=== PATIENT | female | born 1975 | race Caucasian/White ===

== ENCOUNTER 2017-02-20 06:05 | Day surgery (SDC) | payer BC ==
[~2017-02-20 06:05] MED LIST: INDOCYANINE GREEN 25 MG VIAL IV ONE; cefOXitin SODIUM 2 GM in D5W 100 ML IV ONE
[2017-02-20] MEDS ORDERED: LIDOCAINE 1% 2 ML INJ ID PRN (06:49)
[2017-02-20] MEDS ORDERED: LR 1,000 ML IV ONE (06:49)
[2017-02-20] MEDS ORDERED: ALBUTEROL 3 ML DEYVIAL IH PRN (06:50)
[2017-02-20] MEDS ORDERED: HYDROCODONE/APAP 5/325 TAB PO PRN (06:50)
[2017-02-20] MEDS ORDERED: ONDANSETRON 4 MG/2 ML VIAL IVP PRN (06:50)
[2017-02-20] MEDS ORDERED: PROMETHAZINE HCL 25 MG/ML INJ IVP PRN (06:50)
[2017-02-20] MEDS ORDERED: MIDAZOLAM 2 MG/2 ML VIAL IVP ONE (06:50)
[2017-02-20] MEDS ORDERED: fentaNYL 100 MCG/2 ML INJ IVP PRN (06:50)
[2017-02-20] MEDS ORDERED: HYDROmorphONE/DILAUDID 1 MG/ML INJ IVP PRN (06:50)
[2017-02-20] MEDS ORDERED: ACETAMINOPHEN 500 MG TAB PO PRN (06:50)
[2017-02-20] MEDS ORDERED: NALOXONE HCL 0.4 MG/ML INJ IVP PRN (06:50)
--- NOTE | 2017-02-20 06:52 | PDANEPAE ---
ANE History of Present Illness Magaly RM Past Medical History - Cardiovascular History Hx Hypertension: No Hx Arrhythmias: No Hx Chest Pain: No Hx Coronary Artery / Peripheral Vascular Disease: No Hx CHF / Valvular Disease: No Hx Palpitations: No - Pulmonary History Hx COPD: No Hx Asthma/Reactive Airway Disease: No Hx Recent Upper Respiratory Infection: No Hx Oxygen in Use at Home: No Hx Sleep Apnea: No Sleep Apnea Screening Result - Last Documented: Negative - Neurologic History Hx Cerebrovascular Accident: No Hx Seizures: No Hx Dementia: No - Endocrine History Hx Diabetes: No - Renal History Hx Renal Disorders: No - Liver History Hx Hepatic Disorders: Yes Hepatic History Comment: GALLBLADDER SXS - Neurological & Psychiatric Hx Hx Neurological and Psychiatric Disorders: Yes Neurological / Psychiatric History Comment: ANXIETY - Cancer History Hx Cancer: No - Congenital Disorder History Hx Congenital Disorders: No - GI History Hx Gastrointestinal Disorders: Yes Gastrointestinal History Comment: ACID REFLUX. HYPERPYLORIA - Other Health History Other Health History: NEG - Chronic Pain History Chronic Pain: No - Surgical History Prior Surgeries: TUBAL LIGATION ANE Review of Systems Review of Systems: - Exercise capacity METS (RN): 5 METS ANE Patient History - Allergies Allergies/Adverse Reactions: morphine Allergy (Verified 02/08/17 12:31) "MADE ME REALLY SICK" - Home Medications Home Medications: Alprazolam 02/08/17 [Last Taken Unknown] Tylenol 02/08/17 [Last Taken Unknown] - Smoking Hx Smoking Status: Never smoked - Family Anes Hx Family Hx Anesthesia Complications: NEG ANE Labs/Vital Signs - Vital Signs Height: 160.02 cm Weight: 63.503 kg ANE Physical Exam - Airway Neck exam: FROM Mallampati Score: Class 2 Mouth exam: normal dental/mouth exam - Pulmonary Pulmonary: clear to auscultation - Cardiovascular Cardiovascular: regular rate and rhythym - ASA Status ASA Status: I ANE Anesthesia Plan Anesthesia Plan: general endotracheal anesthesia
[2017-02-20] MEDS ORDERED: PROPOFOL 200 MG/20 ML VIAL ONE (06:55)
[2017-02-20] MEDS ORDERED: ROCURONIUM 50 MG/5 ML VIAL ONE (06:57)
[2017-02-20] MEDS ORDERED: fentaNYL 250 MCG/5 ML INJ ONE (06:58)
[2017-02-20] MEDS ORDERED: DEXAMETHASONE 4 MG/ML VIAL ONE ×2 (07:04)
[2017-02-20] MEDS ORDERED: ONDANSETRON 4 MG/2 ML VIAL ONE ×2 (07:04→10:50)
[2017-02-20] MEDS ORDERED: METOCLOPRAMIDE 10 MG/2 ML VIAL ONE (07:04)
[2017-02-20] MEDS ORDERED: RANITIDINE 50 MG/2 ML VIAL ONE (07:04)
[2017-02-20] MEDS ORDERED: LIDOCAINE 1% 2 ML INJ ONE (07:07)
[2017-02-20] MEDS ORDERED: BUPIVACAINE 0.5% 30 ML SDV ONE (07:09)
[2017-02-20] MEDS ORDERED: INDOCYANINE GREEN 25 MG VIAL IV ONE (07:15)
--- NOTE | 2017-02-20 07:24 | PDHPUP ---
History & Physical Update H&P update statement: This history and physical update is based on an assessment of the patient which was completed after admission or registration (within 24 hours), but prior to the surgery/procedure. H&P update: H&P reviewed & patient examined, no change in patient's condition since H&P completed
[2017-02-20] MEDS ORDERED: SUGAMMADEX SODIUM 200 MG/2 ML VIAL IVP ONE (08:34)
--- NOTE | 2017-02-20 08:48 | POSTOPPROG ---
Post Op Note Date of Operation: 02/20/17 Surgeon: Ottoniel Tolbert Chimney Builder: Dr. Nelson Anesthesiologist: Dr. Bruno Pre-op Diagnosis: Symptomatic cholelithiasis Post-op Diagnosis: same Procedure: SILS cholecystectomy Inf/Abcess present in the surg proc area at time of surgery?: No EBL: Minimal
--- NOTE | 2017-02-20 08:59 | POSTANESTH ---
Post Anesthetic Evaluation Cardiovascular Status: Normal, Stable Respiratory Status: Normal, Stable Level of Consciousness/Mental Status: Can Participate in Eval, Mildly Sleepy, Arousable Pain Control: Adequate, Prn Tx Ordered Nausea/Vomiting Control: Adequate, Prn Tx Ordered Complications Possibly Related to Anesthesia: None Noted
[2017-02-20 09:37] VITALS: TEMP 97.7
[2017-02-20 10:07] VITALS: BP 107/66; PULSE 78; RESP 14; O2SAT 97
--- NOTE | 2017-02-20 11:35 | GOP ---
[f rep st] OPERATIVE REPORT DATE OF OPERATION: 02/20/2017 SURGEON: Bunny Tolbert MD GEAR CUTTER: Dr. Nelson, whose presence was requested by me and medically necessary for the safe a nd timely completion of this case. ANESTHESIA: General endotracheal anesthesia per Dr. Bruno. PREOPERATIVE DIAGNOSIS: Symptomatic cholelithiasis. POSTOPERATIVE DIAGNOSIS: Symptomatic cholelithiasis. PROCEDURE PERFORMED: Robotic single site cholecystectomy. FINDINGS: Patient had stones and mild inflammation of the gallbladder. No other lesions were identi fied. ESTIMATED BLOOD LOSS: 20 cc. INDICATIONS: A 41-year-old female with a history of abdominal pain. MRI had demonstrated gallstones . Risks and benefits of procedure were discussed with the patient and her family and her questions w ere answered. They wished to proceed. DESCRIPTION OF PROCEDURE: The patient was in the supine position. After the induction of adequate g eneral endotracheal anesthesia, the patient was prepped and draped in the standard surgical fashion. Marcaine 0.5% was injected throughout the umbilical area. A transverse incision was made through th e umbilicus and carried down to subcutaneous tissue with Bovie cautery and blunt dissection. The fas carmen was exposed and divided vertically in the midline. The fascia was elevated, and the abdomen was carefully entered. A 2.5-cm incision was made and the single site trocar was placed carefully. Next , the camera trocar was placed into the single site trocar and the camera itself followed. The area was inspected and no damage was seen from trocar placement. At this point, the robot was moved into position. The patient was then tilted into reverse Trendelenburg and the camera port was docked. Ne xt, the mri assistant port was placed and the curved robotic arm ports were placed. These were all place d under direct vision without incident. The robot was fully docked and the dissection proceeded robo tically. Adhesions were taken down using blunt dissection and Bovie cautery. The cystic structures were then dissected similarly. The cystic duct and cystic artery were clearly identified. In addition, the ortiz bhepatic space was dissected. Once this critical view was obtained, the cystic duct and artery were clipped and divided. The gallbladder was then elevated off the liver bed using Bovie cautery and samara nt dissection. The gallbladder was grasped in the mri assistant port. The robot itself was undocked and the patient ret urned to the neutral position. The single site port and mri assistant trocar were removed together. The gallbladder was then extracted. The abdomen was thoroughly irrigated and aspirated. Good hemostasi s was noted. The fascia at the trocar site was then closed using 0 Vicryl in a running fashion. Wou nds were thoroughly irrigated. Skin was closed with 4-0 Monocryl in a subcuticular stitch. The woun d was then sterilely dressed. The patient was extubated and taken to PACU in stable condition. Addendum: The abdomen was thoroughly irrigated and aspirated. No other lesions were noted. COMPLICATIONS: None. DRAINS: None. /[id number]/MODL
== END 2017-02-20 11:21 | disposition home or self-care (01) ==
LOC: FSGY 06:05
PROVIDERS: ATTEND Surgery
PROC: 0FT44ZZ Resection of Gallbladder, Percutaneous Endoscopic Approach (ICD-10-PCS; principal; 2017-02-20 07:30)
DX: K80.20 Calculus of gallbladder without cholecystitis without obstruction (principal)
CPT/HCPCS: J0694; J1100; J2250; J2405; J2704; J2765; J2780; J3010

== ENCOUNTER → 2017-02-28 | Outpatient (CLI) | payer BC | LOC: FIMAGING 16:18 | PROVIDERS: ATTEND Surgery | DX: R10.11 Right upper quadrant pain (principal) ==